=== PATIENT | male | born 1940 | race Hispanic/Latino ===

== ENCOUNTER 2019-10-29 08:08 | Day surgery (SDC) | payer MEDICARE ==
[~2019-10-29 08:08] MED LIST: ceFAZolin/Water 2 GM/20 ML 2 GM/20 ML SYRINGE IV NR
--- NOTE | 2019-10-29 09:59 | Anesthesia Consultation ---
Anesthesia Consult and Med Hx Date of service: 10/29/19 - Airway Anesthetic Teeth Evaluation: Edentulous ROM Head & Neck: Adequate Mental/Hyoid Distance: Adequate Mallampati Class: Class II Intubation Access Assessment: Good - Pulmonary Exam CTA: Yes - Cardiac Exam Cardiac Exam: RRR - Pre-Operative Health Status ASA Pre-Surgery Classification: ASA3 Proposed Anesthetic Plan: General - Pulmonary Hx Smoking: Yes (QUIT 2011) Hx Asthma: No COPD: No Hx Sleep Apnea: No (SANGITA PRE SCREEN HIGH RISK) - Cardiovascular System Hx Hypertension: Yes Hx Coronary Artery Disease: Yes - Central Nervous System CVA: No (??? NO DEFICITS REPORTED-LT ARM GOES TO SLEEP SOMETIMES WHEN DRIVING.DR. CHAHAL) Hx Psychiatric Problems: No - Gastrointestinal Hx Ulcer: Yes (PEPTIC ULCER DISEASE) - Hematic Hx Anemia: Yes - Other Systems Hx Alcohol Use: Yes (STOPPED 1993) Hx Substance Use: No Hx Cancer: No - Additional Comments Anesthesia Medical History Comments: Short systolic murmur, 2/6 at [facility]; S/P bilateral CEA
--- NOTE | 2019-10-29 10:01 | Anesthesia Day of Surgery ---
Anesthesia Day of Surgery - Day of Surgery Patient Examined: Yes Patient H&P Reviewed: Yes Patient is NPO: Yes Beta Blockers: Yes (10/28/2019 PM. Pt is on schedule.) Cardiac Clearance: Yes (Last office note on chart)
[2019-10-29] MEDS ORDERED: ONDANSETRON 4 MG/2 ML INJ IV PRN (10:02)
[2019-10-29] MEDS ORDERED: HYDROcodone/ACETAMINOPHEN 5-325 MG TAB PO PRN (10:02)
[2019-10-29] MEDS ORDERED: MIDAZOLAM 2 MG/2 ML INJ IV NR (10:12)
[2019-10-29] MEDS ORDERED: SODIUM CHLORIDE 0.9% 1000 ML 1,000 ML IV SCH (10:15)
[2019-10-29] MEDS ORDERED: MIDAZOLAM 2 MG/2 ML INJ ONE (10:16)
[2019-10-29] MEDS ORDERED: fentaNYL 100 MCG/2 ML INJ ONE (10:20)
[2019-10-29] MEDS ORDERED: LIDOCAINE MPF (2%) 20 MG/1 ML VIAL 5 ML ONE (10:20)
[2019-10-29] MEDS ORDERED: PROPOFOL 200 MG/20 ML VIAL IV ONE (10:20)
[2019-10-29] MEDS ORDERED: ONDANSETRON 4 MG/2 ML INJ ONE (10:21)
--- NOTE | 2019-10-29 11:40 | Operative Report ---
PREOPERATIVE DIAGNOSIS: Bladder outlet obstruction. POSTOPERATIVE DIAGNOSIS: Bladder outlet obstruction. PROCEDURE: Cystoscopy, resume therapy. SURGEON: Dr. Gandhi. ANESTHESIA: General. FINDINGS: This is a gentleman with a prominent bilobar hypertrophy. The lobes were kissing. He had elevated voiding pressures and a very high IPSS score. He now presents for treatment. DESCRIPTION OF PROCEDURE: The patient was brought to the operating room and placed on the operating table. Following induction of anesthesia, placed in lithotomy position, prepped and draped in usual sterile fashion. Cystourethroscopy showed a 2-3 plus trabeculation. The resume device was easily inserted and we did 2 sticks on the patient's left and then 2 on the right. The patient tolerated the procedure well. There was good blanching. We did prime the machine first twice and everything functions accordingly. An 18 coude was placed at the conclusion of procedure. Irrigation was clear. He tolerated the procedure well. Family notified, brought to recovery room in stable condition. He was offered multiple different procedures and at this point, he wanted the least invasive. JOB# [id number] AMANDO/JAYA
[2019-10-29] MEDS: HYDROmorphone 1 MG/1 ML INJ IV PRN ×2 (11:45→11:56)
--- NOTE | 2019-10-29 12:33 | Post Operative Note ---
Date of procedure: 10/29/19 Pre-op diagnosis: chapman Post-op diagnosis: same Findings: bilobar Procedure: rezum Anesthesia: GETA Surgeon: MEAGAN DING Estimated blood loss: none Pathology: none Condition: stable Disposition: PACU
--- NOTE | 2019-10-29 12:34 | Discharge Summary ---
Short Stay Discharge Plan Activity: other (no straining ) Weight Bearing Status: Full Weight Bearing Diet: low fat, low cholesterol, low salt Special Instructions: other (inc fluids ) Durable Medical Equipment Needed Upon Discharge: other (fooley to bag ) Follow up with: LITA GONZALEZ MD [Primary Care Provider] - 7 Days MEAGAN DING MD [Staff Physician] - 7 Days
[2019-10-29] MEDS ORDERED: METOPROLOL TARTRATE 5 MG/5 ML INJ IV ONE (12:36)
[2019-10-29 12:58] VITALS: BP 161/68
--- NOTE | 2019-10-29 14:10 | Post Anesthesia Evaluation ---
- Post Anesthesia Evaluation Patient Participated: Yes Airway Patent: Yes Stable Respiratory Function: Yes Nausea/Vomiting: No Temp > 96.8F: Yes Pain Manageable: Yes Adequeate Hydration: Yes Anesthesia Complications: No Block Receding Appropriately: Not Applicable Patient on Ventilator: No
== END 2019-10-29 13:48 | disposition home or self-care (01) ==
LOC: OR 08:08
PROVIDERS: ATTEND Urology
DX: N32.0 Bladder-neck obstruction (principal); I10 Essential (primary) hypertension; E78.5 Hyperlipidemia, unspecified; D72.829 Elevated white blood cell count, unspecified; G43.909 Migraine, unspecified, not intractable, without status migrainosus; K21.9 Gastro-esophageal reflux disease without esophagitis; M19.90 Unspecified osteoarthritis, unspecified site; I25.10 Atherosclerotic heart disease of native coronary artery without angina pectoris; Z91.81 History of falling; Z88.8 Allergy status to other drugs, medicaments and biological substances; Z79.899 Other long term (current) drug therapy; Z79.84 Long term (current) use of oral hypoglycemic drugs; Z87.891 Personal history of nicotine dependence; Z98.49 Cataract extraction status, unspecified eye; Z90.49 Acquired absence of other specified parts of digestive tract; Z72.89 Other problems related to lifestyle; Z98.890 Other specified postprocedural states; Z83.3 Family history of diabetes mellitus; Z82.61 Family history of arthritis; Z86.2 Personal history of diseases of the blood and blood-forming organs and certain disorders involving the immune mechanism; Z86.73 Personal history of transient ischemic attack (TIA), and cerebral infarction without residual deficits; Z82.49 Family history of ischemic heart disease and other diseases of the circulatory system
CPT/HCPCS: 36415; 53854; 82962; 84132; J0690; J1170; J2405; J2704; J3010; J7030; J2250

== ENCOUNTER 2019-11-11 17:00 | Emergency (ER) | payer MEDICARE ==
--- NOTE | 2019-11-11 20:48 | Event Note ---
ED Screening Note ED Screening Note: had a procedure on 10/29 with mayo had a cystoscopy has dysuria placed augumentin +urinary frequency no abd pain no fever states that the augmentin causing diarrhea This initial assessment/diagnostic orders/clinical plan/treatment(s) is/are subject to change based on patients health status, clinical progression and re- assessment by fellow clinical providers in the ED. Further treatment and workup at subsequent clinical providers discretion. Patient/guardian urged not to elope from the ED as their condition may be serious if not clinically assessed and managed. Initial orders include: UA
[2019-11-11 22:39] LABS: Bacteria,Urine 1+ /HPF (Negative); Bilirubin,Urine NEG (Negative); Blood,Urine MOD (Negative); Color,Urine Amber (Yellow); Mucus,Urine FEW /HPF
--- NOTE | 2019-11-11 22:47 | Emergency Department Report ---
ED Male HPI - General Chief complaint: Urogenital-Male Stated complaint: URINATION PAIN Time Seen by Provider: 11/11/19 20:44 Source: patient Mode of arrival: Ambulatory Limitations: No Limitations - History of Present Illness Initial comments: had a procedure on 10/29 with mayo had a cystoscopy has dysuria placed augumentin +urinary frequency no abd pain no fever states that the augmentin causing diarrhea - Related Data Home Medications Medication Instructions Recorded Confirmed Last Taken Calcium Carbonate [Tums 500MG CHEW] 500 mg PO PRN 08/13/14 10/18/19 10/22/19 20:00 AtorvaSTATin 40 mg PO DAILY 10/17/19 10/17/19 10/28/19 10:00 Carafate 10 mil units PO PRN 10/17/19 10/17/19 10/22/19 20:00 Ferrous Gluconate 325 mg PO 2XW 10/17/19 10/17/19 10/22/19 20:00 Furosemide [Lasix TAB] 40 mg PO DAILY 10/17/19 10/17/19 10/28/19 10:00 Metoprolol 50 mg PO DAILY 10/17/19 10/17/19 10/28/19 10:00 Potassium Citrate ER 10 mcg PO DAILY 10/17/19 10/17/19 10/28/19 10:00 Tums 500MG CHEW 500 mg PO PRN 10/17/19 10/17/19 10/22/19 20:00 metFORMIN [Glucophage] 500 mg PO BID 10/17/19 10/17/19 10/28/19 10:00 Previous Rx's Medication Instructions Recorded Last Taken Type Phenazopyridine [Pyridium] 100 mg PO TID #12 tab 11/11/19 Unknown Rx cephALEXin [Keflex] 500 mg PO BID 10 Days #20 cap 11/11/19 Unknown Rx traMADoL [Ultram 50 MG tab] 50 mg PO Q6HR PRN #10 tablet 11/11/19 Unknown Rx Allergies Allergy/AdvReac Type Severity Reaction Status Date / Time Calcium Channel Blocking Allergy Unknown Verified 06/03/13 17:24 Agent Dilt [Calcium Channel Blocking Agents-Ángel] Iodinated Contrast Media Allergy Rash Verified 10/17/19 16:52 [Iodinated Contrast Media - IV Dye] nifedipine [From Procardia] AdvReac Intermediate Unknown Verified 10/17/19 16:51 ED Review of Systems ROS: Stated complaint: URINATION PAIN Other details as noted in HPI Comment: All other systems reviewed and negative ED Past Medical Hx - Past Medical History Previous Medical History?: Yes Hx Hypertension: Yes Hx Diabetes: Yes Hx GERD: Yes Hx Arthritis: Yes (ELEANOR HANDS , JOINTS) Hx Headaches / Migraines: Yes (MIGRAINES) Hx Asthma: No Hx COPD: No Hx Tuberculosis: No Hx Dementia: No Hx HIV: No - Surgical History Past Surgical History?: Yes Hx Appendectomy: Yes Additional Surgical History: Prostate - Social History Smoking Status: Never Smoker Substance Use Type: None - Medications Home Medications: Home Medications Medication Instructions Recorded Confirmed Last Taken Type Calcium Carbonate [Tums 500MG CHEW] 500 mg PO PRN 08/13/14 10/18/19 10/22/19 20:00 History AtorvaSTATin 40 mg PO DAILY 10/17/19 10/17/19 10/28/19 10:00 History Carafate 10 mil units PO PRN 10/17/19 10/17/19 10/22/19 20:00 History Ferrous Gluconate 325 mg PO 2XW 10/17/19 10/17/19 10/22/19 20:00 History Furosemide [Lasix TAB] 40 mg PO DAILY 10/17/19 10/17/19 10/28/19 10:00 History Metoprolol 50 mg PO DAILY 10/17/19 10/17/19 10/28/19 10:00 History Potassium Citrate ER 10 mcg PO DAILY 10/17/19 10/17/19 10/28/19 10:00 History Tums 500MG CHEW 500 mg PO PRN 10/17/19 10/17/19 10/22/19 20:00 History metFORMIN [Glucophage] 500 mg PO BID 10/17/19 10/17/19 10/28/19 10:00 History Phenazopyridine [Pyridium] 100 mg PO TID #12 tab 11/11/19 Unknown Rx cephALEXin [Keflex] 500 mg PO BID 10 Days #20 cap 11/11/19 Unknown Rx traMADoL [Ultram 50 MG tab] 50 mg PO Q6HR PRN #10 tablet 11/11/19 Unknown Rx ED Physical Exam - General Limitations: No Limitations General appearance: alert, in no apparent distress - Head Head exam: Present: atraumatic, normocephalic - Eye Eye exam: Present: normal appearance - ENT ENT exam: Present: mucous membranes moist - Respiratory Respiratory exam: Present: normal lung sounds bilaterally. Absent: respiratory distress, wheezes, rales, rhonchi, stridor, chest wall tenderness, accessory muscle use, decreased breath sounds, prolonged expiratory - Cardiovascular Cardiovascular Exam: Present: regular rate, normal rhythm, normal heart sounds. Absent: systolic murmur, diastolic murmur, rubs, gallop - GI/Abdominal GI/Abdominal exam: Present: soft, normal bowel sounds. Absent: distended, tenderness, guarding, rebound, rigid - Neurological Exam Neurological exam: Present: alert, oriented X3 - Psychiatric Psychiatric exam: Present: normal affect, normal mood - Skin Skin exam: Present: warm, dry, intact ED Course Vital Signs 11/11/19 11/11/19 17:38 20:55 Temperature 97.8 F 97.8 F Pulse Rate 92 H 96 H Respiratory 20 20 Rate Blood Pressure 224/89 224/89 O2 Sat by Pulse 99 100 Oximetry Critical care attestation.: If time is entered above; I have spent that time in minutes in the direct care of this critically ill patient, excluding procedure time. ED Disposition Clinical Impression: Dysuria Hematuria Qualifiers: Hematuria type: other microscopic Qualified Code(s): R31.29 - Other microscopic hematuria; R31.2 - Other microscopic hematuria Disposition: DC-01 TO HOME OR SELFCARE Is pt being admited?: No Does the pt Need Aspirin: No Condition: Stable Instructions: Dysuria (ED), Urinary Tract Infection in Men (ED) Additional Instructions: please take medication as prescribed. do not drive or operate heavy machinery while taking pain medication. increase your water intake. please follow up with the urologist. please follow up with your primary care doctor. need to have your urine retested. return to the emergency room for any new or worsening symptoms. Prescriptions: cephALEXin [Keflex] 500 mg PO BID 10 Days #20 cap Phenazopyridine [Pyridium] 100 mg PO TID #12 tab traMADoL [Ultram 50 MG tab] 50 mg PO Q6HR PRN #10 tablet PRN Reason: Pain , Severe (7-10) Referrals: MEAGAN DING MD [Staff Physician] - 2-3 Days CHEMA CABRALES MD [Staff Physician] - 2-3 Days your, primary care doctor [Other] - 2-3 Days Time of Disposition: 22:43 Print Language: BRITISH
[2019-11-11] MEDS ORDERED: METOPROLOL TARTRATE 50 MG TAB PO ONE (22:51)
[2019-11-11] MEDS ORDERED: traMADol 50 MG TAB PO ONE (22:52)
[2019-11-11 23:45] VITALS: BP 140/47
== END 2019-11-12 00:27 | disposition home or self-care (01) ==
LOC: ED 17:00
DX: R30.0 Dysuria (principal); R31.9 Hematuria, unspecified; I10 Essential (primary) hypertension; E11.9 Type 2 diabetes mellitus without complications; K21.9 Gastro-esophageal reflux disease without esophagitis; M19.90 Unspecified osteoarthritis, unspecified site; Z90.49 Acquired absence of other specified parts of digestive tract; Z79.899 Other long term (current) drug therapy; Z91.048 Other nonmedicinal substance allergy status; Z88.8 Allergy status to other drugs, medicaments and biological substances
CPT/HCPCS: 81001; 99282

== ENCOUNTER 2019-11-13 22:47 | Emergency (ER) | payer MEDICARE ==
--- NOTE | 2019-11-14 00:45 | Emergency Department Report ---
ED Male HPI - General Chief complaint: Urogenital-Male Stated complaint: BLADDER INFECTION Time Seen by Provider: 11/14/19 00:02 Source: patient Mode of arrival: Ambulatory Limitations: No Limitations - History of Present Illness Initial comments: Mr. Shrestha is a 78-year-old white male with a history with a history of UTI diagnosed 2 days ago, and BPH , who presents for complaint of of bladder retention. Last void 9 PM. States abdominal spasms. Currently prescribed prescribed Keflex and Pyridium. There is no fevers no chills no nausea vomiti ng. No hematuria patient denies history of renal stones. Presents with adult son who confirmed same, patient has urology follow-up with Dr. Hernandez tomorrow. Will obtain urine C&S place indwelling Austin catheter to leg bag patient will follow-up with urology as scheduled. Continue current antibiotics of Keflex and Pyridium as prescribed on yesterday Complaint: dysuria, other (Urinary Retention) Onset/Timin -: week(s) Radiation: none, other (super pubic ) Severity: moderate Severity scale (0 -10): 4 Quality: other (spasm ) Consistency: intermittent Improves with: none Worsens with: urination urinary retention, other (bph, uti ) - Related Data Sexually active: No Home Medications Medication Instructions Recorded Confirmed Last Taken Calcium Carbonate [Tums 500MG CHEW] 500 mg PO PRN 08/13/14 10/18/19 10/22/19 20:00 AtorvaSTATin 40 mg PO DAILY 10/17/19 10/17/19 10/28/19 10:00 Carafate 10 mil units PO PRN 10/17/19 10/17/19 10/22/19 20:00 Ferrous Gluconate 325 mg PO 2XW 10/17/19 10/17/19 10/22/19 20:00 Furosemide [Lasix TAB] 40 mg PO DAILY 10/17/19 10/17/19 10/28/19 10:00 Metoprolol 50 mg PO DAILY 10/17/19 10/17/19 10/28/19 10:00 Potassium Citrate ER 10 mcg PO DAILY 10/17/19 10/17/19 10/28/19 10:00 Tums 500MG CHEW 500 mg PO PRN 10/17/19 10/17/19 10/22/19 20:00 metFORMIN [Glucophage] 500 mg PO BID 10/17/19 10/17/19 10/28/19 10:00 Previous Rx's Medication Instructions Recorded Last Taken Type Phenazopyridine [Pyridium] 100 mg PO TID #12 tab 11/11/19 Unknown Rx cephALEXin [Keflex] 500 mg PO BID 10 Days #20 cap 11/11/19 Unknown Rx traMADoL [Ultram 50 MG tab] 50 mg PO Q6HR PRN #10 tablet 11/11/19 Unknown Rx Allergies Allergy/AdvReac Type Severity Reaction Status Date / Time Calcium Channel Blocking Allergy Unknown Verified 06/03/13 17:24 Agent Dilt [Calcium Channel Blocking Agents-Ángel] Iodinated Contrast Media Allergy Rash Verified 10/17/19 16:52 [Iodinated Contrast Media - IV Dye] nifedipine [From Procardia] AdvReac Intermediate Unknown Verified 10/17/19 16:51 ED Review of Systems ROS: Stated complaint: BLADDER INFECTION Other details as noted in HPI Constitutional: denies: chills, fever Eyes: denies: eye pain, eye discharge, vision change ENT: denies: ear pain, throat pain Respiratory: denies: cough, shortness of breath, wheezing Cardiovascular: denies: chest pain, palpitations Endocrine: no symptoms reported Gastrointestinal: denies: nausea, vomiting, diarrhea, constipation, melena Genitourinary: urgency, dysuria, frequency. denies: hematuria, discharge, testicular pain, testicular mass Musculoskeletal: arthralgia. denies: back pain, joint swelling Skin: denies: rash, lesions Neurological: denies: headache, weakness, paresthesias Psychiatric: denies: anxiety, depression Hematological/Lymphatic: denies: easy bleeding, easy bruising ED Past Medical Hx - Past Medical History Previous Medical History?: Yes Hx Hypertension: Yes Hx Diabetes: Yes Hx GERD: Yes Hx Arthritis: Yes (ELEANOR HANDS , JOINTS) Hx Headaches / Migraines: Yes (MIGRAINES) Hx Asthma: No Hx COPD: No Hx Tuberculosis: No Hx Dementia: No Hx HIV: No - Surgical History Past Surgical History?: No Hx Appendectomy: Yes Additional Surgical History: Prostate - Social History Smoking Status: Never Smoker Substance Use Type: None - Medications Home Medications: Home Medications Medication Instructions Recorded Confirmed Last Taken Type Calcium Carbonate [Tums 500MG CHEW] 500 mg PO PRN 08/13/14 10/18/19 10/22/19 20:00 History AtorvaSTATin 40 mg PO DAILY 10/17/19 10/17/19 10/28/19 10:00 History Carafate 10 mil units PO PRN 10/17/19 10/17/19 10/22/19 20:00 History Ferrous Gluconate 325 mg PO 2XW 10/17/19 10/17/19 10/22/19 20:00 History Furosemide [Lasix TAB] 40 mg PO DAILY 10/17/19 10/17/19 10/28/19 10:00 History Metoprolol 50 mg PO DAILY 10/17/19 10/17/19 10/28/19 10:00 History Potassium Citrate ER 10 mcg PO DAILY 10/17/19 10/17/19 10/28/19 10:00 History Tums 500MG CHEW 500 mg PO PRN 10/17/19 10/17/19 10/22/19 20:00 History metFORMIN [Glucophage] 500 mg PO BID 10/17/19 10/17/19 10/28/19 10:00 History Phenazopyridine [Pyridium] 100 mg PO TID #12 tab 11/11/19 Unknown Rx cephALEXin [Keflex] 500 mg PO BID 10 Days #20 cap 11/11/19 Unknown Rx traMADoL [Ultram 50 MG tab] 50 mg PO Q6HR PRN #10 tablet 11/11/19 Unknown Rx ED Physical Exam - General Limitations: No Limitations General appearance: alert, in no apparent distress - Head Head exam: Present: atraumatic, normocephalic - Eye Eye exam: Present: normal appearance - ENT ENT exam: Present: normal exam - Neck Neck exam: Present: normal inspection - Respiratory Respiratory exam: Present: normal lung sounds bilaterally. Absent: respiratory distress - Cardiovascular Cardiovascular Exam: Present: regular rate, normal rhythm. Absent: systolic murmur, diastolic murmur, rubs, gallop - GI/Abdominal GI/Abdominal exam: Present: distended (mild distention superpubic ), normal bowel sounds. Absent: tenderness, guarding, rebound, rigid, bruit, hernia - Rectal Rectal exam: Present: deferred - exam: Absent: scrotal swelling External exam: Present: normal external exam - Extremities Exam Extremities exam: Present: normal inspection, full ROM, normal capillary refill. Absent: tenderness, pedal edema, joint swelling - Back Exam Back exam: Present: normal inspection, full ROM. Absent: tenderness, CVA tenderness (R), CVA tenderness (L), rash noted - Neurological Exam Neurological exam: Present: alert, oriented X3, CN II-XII intact, normal gait, reflexes normal. Absent: motor sensory deficit - Psychiatric Psychiatric exam: Present: normal affect, normal mood - Skin Skin exam: Present: warm, dry, intact, normal color. Absent: rash ED Course Vital Signs 11/13/19 23:06 Temperature 98.1 F Pulse Rate 75 Respiratory 18 Rate Blood Pressure 184/56 O2 Sat by Pulse 96 Oximetry ED Medical Decision Making - Lab Data Labs 11/14/19 00:21 Urine Color Melinda Urine Turbidity Clear Urine pH 5.0 Ur Specific [place] 1.010 Urine Protein <15 mg/dl Urine Glucose (UA) Neg Urine Ketones Neg Urine Blood Mod Urine Nitrite Pos Urine Bilirubin Neg Urine Urobilinogen 4.0 Ur Leukocyte Esterase Neg Urine WBC (Auto) 6.0 Urine RBC (Auto) 129.0 U Epithel Cells (Auto) 1.0 - Medical Decision Making Austin output 300 cc initially. Patient has voided approximately 1100 cc since time of placement. Currently on Cipro and Pyridium. He has urology follow-up today with Dr. Hernandez. Patient and son verbalized understanding of Austin catheter care procedures patient will be DC'd home with indwelling Austin to bedside drain. Patient denies pain at this time .patient will be DC to home in stable condition at this time Critical care attestation.: If time is entered above; I have spent that time in minutes in the direct care of this critically ill patient, excluding procedure time. ED Disposition Clinical Impression: Urinary retention UTI (urinary tract infection) Qualifiers: Urinary tract infection type: acute cystitis Hematuria presence: without hematuria Qualified Code(s): N30.00 - Acute cystitis without hematuria Disposition: DC-01 TO HOME OR SELFCARE Is pt being admited?: No Does the pt Need Aspirin: No Condition: Stable Instructions: Urinary Retention in Men (ED), Urinary Tract Infection in Men (ED) Additional Instructions: continue cipro and pyridium as prescribed, follow up with urology fabiola Referrals: CHEMA HERNANDEZ MD [Staff Physician] - 3-5 Days Time of Disposition: 01:36
[2019-11-14 00:56] LABS: Bilirubin,Urine NEG (Negative); Blood,Urine MOD (Negative); Color,Urine Amber (Yellow)
[2019-11-14 01:03] LABS: Protein,Urine <15 mg/dL mg/dL (Negative)
[2019-11-14 02:06] VITALS: BP 145/89
== END 2019-11-14 02:05 | disposition home or self-care (01) ==
LOC: ED 22:47
DX: N39.0 Urinary tract infection, site not specified (principal); I10 Essential (primary) hypertension; E11.9 Type 2 diabetes mellitus without complications; K21.9 Gastro-esophageal reflux disease without esophagitis; G43.909 Migraine, unspecified, not intractable, without status migrainosus; Z79.899 Other long term (current) drug therapy; Z88.8 Allergy status to other drugs, medicaments and biological substances
CPT/HCPCS: 51702; 81001; 87086